=== PATIENT | female | born 1995 | race Caucasian/White ===

== ENCOUNTER 2017-03-26 10:45 | Inpatient (IN) | payer OTHER ==
[~2017-03-26] VITALS: Ht 154.9 cm; Wt 50.3 kg
[2017-03-26 12:00] VITALS: BP 133/80
[2017-03-26 12:25] VITALS: BP 133/80
--- NOTE | 2017-03-26 12:25 | NUR ---
21 year old female admitted to room # 427 for stabilization. 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 Compliant with admission procedure. Patient complaining of restlessness,aching,and headache. See assessment forms for additional information about patient status.
[2017-03-26] MEDS ORDERED: NEURONTIN800 MG PO (12:41)
[2017-03-26] MEDS ORDERED: HYDROXYZINE HCL50 MG PO (12:43)
[2017-03-26 13:13] LABS: BILIRUBIN NEGATIVE (NEGATIVE); BLOOD NEGATIVE (NEGATIVE); CLARITY CLEAR (CLEAR); COLOR YELLOW (YELLOW); GLUCOSE NEGATIVE (NEGATIVE); KETONE NEGATIVE (NEGATIVE); LEUKO ESTERASE NEGATIVE (NEGATIVE); NITRITE NEGATIVE (NEGATIVE); PH 6.5 (5.0-9.0); SPECIFIC GRAVITY <= 1.005 (1.005-1.030); UROBILINOGEN 0.2 E.U./dl (0.2-1.0)
[2017-03-26 13:22] LABS: BASO # 0.1 10*3/uL (0.0-0.1); BASO % 0.7 % (0.0-1.0); EOS # 0.7 10*3/uL (0.0-0.4); HEMATOCRIT 43.6 % (37.0-47.0); HEMOGLOBIN 14.4 g/dl (12.0-16.0); LYMPH # 3.5 10*3/uL (1.3-4.4); MEAN CELL VOLUME 86.2 fl (81.0-99.0); MEAN CORPUSCULAR HGB 28.5 pg (27.0-31.0); MEAN PLATELET VOLUME 8.5 fl (9.6-12.3); MONO # 0.6 10*3/uL (0.1-1.0); MONO % 7.8 % (3.0-9.0); NEUT # 2.8 10*3/uL (2.3-7.9); NEUT % 36.4 % (47.0-73.0); PLATELET COUNT AUTOMATED 336 10*3/uL (130-400); RED BLOOD COUNT 5.06 10*6/uL (4.10-5.10); RED CELL DISTRI WIDTH 13.9 % (0-14.5); WHITE BLOOD COUNT 7.6 10*3/uL (4.8-10.8)
[2017-03-26 13:22] LABS: WBC 0-2 wbc/hpf (0-5)
[2017-03-26 13:35] LABS: URINE AMPHETAMINES < 1000 (1000ng/ml); URINE BARBITURATES < 200 (200ng/ml); URINE BENZODIAZEPINES < 200 (200ng/ml); URINE CANNABINOIDS (THC) < 50 (50ng/ml); URINE COCAINE > 300 (300ng/ml); URINE METHADONE < 300 (300ng/ml); URINE OPIATES < 300 (300ng/ml)
[2017-03-26 13:36] LABS: URINE PHENCYCLIDINE < 25 (25ng/ml)
[2017-03-26 13:37] LABS: ALBUMIN 4.2 gm/dl (3.1-4.5); ALKALINE PHOSPHATASE 79 U/L (45-117); BUN 9 mg/dl (7-24); CHLORIDE 107 mmol/L (98-107); POTASSIUM 4.6 mmol/L (3.5-5.1); SGOT/AST 25 IU/L (3-35); SGPT/ALT 27 U/L (12-78); SODIUM 139 mmol/L (136-145)
[2017-03-26 13:38] LABS: ETHYL ALCOHOL < 3.0 mg/dl (<3)
--- NOTE | 2017-03-26 14:36 | NUR ---
PATIENT C/O FEELING RESTLESS, ACHY AND HEADACHE. MEDICATED WITH MOTRIN, TYLENOL, ROBAXIN AND VISTARIL PER PRN ORDERS. WILL CONTINUE TO MONITOR.
[2017-03-26 16:00] VITALS: BP 131/70
--- NOTE | 2017-03-26 16:13 | NUR ---
D/C PLANNING: PATIENT WANTS TO GO TO [facility] FOR OUTPATIENT. SHE WANTS THE VIVITROL SHOT. SOLE HOFF B.A. [employer]
[2017-03-26 20:00] VITALS: BP 121/64
--- NOTE | 2017-03-26 20:00 | NUR ---
PT LAYING IN BED, RESTLESS, TOSSING AND TURNING. LUNGS CLEAR, NO EDEMA. PT DENIES ABDOMINAL PAIN AND VOMITING BUT DOES REPORT NAUSEA AND CHILLS . PT DENIES TREMORS.
--- NOTE | 2017-03-26 21:17 | NUR ---
PT REQUESTED MEDICATOINS FOR RESTLESSNESS, CHILLS, ANXIETY, AND NAUSEA. ZOFRAN, ROBAXIN, VISTARIL, AND TRAZADONE WERE GIVEN.
--- NOTE | 2017-03-26 22:14 | NUR ---
PRN MEDICATIONS EFFECTIVE. PT SLEEPING. NO TWICTHING OR RESTLESSNESS NOTED.
[2017-03-27] VITALS: BP 121/68
--- NOTE | 2017-03-27 00:08 | NUR ---
PT REQUESTED MEDICATION FOR RESTLESSNESS AND INSOMNIA. REQUIP AND TRAZADONE WERE GIVEN.
--- NOTE | 2017-03-27 01:05 | NUR ---
PT STATES SHE IS STILL RESTLESS AND UNABLE TO SLEEP. CALLED . NEW ORDERS RECEIVED. SEE MAR.
--- NOTE | 2017-03-27 01:20 | NUR ---
24 HR chart check completed.
--- NOTE | 2017-03-27 01:27 | NUR ---
SEROQUEL GIVEN PRN FOR RESTLESSNESS AND INSOMNIA.
--- NOTE | 2017-03-27 02:12 | NUR ---
SEROQUEL EFFECTIVE, PT SLEEPING.
--- NOTE | 2017-03-27 02:21 | NUR ---
PT REQUESTED MEDICTION FOR NAUSEA. ZOFRAN WAS GIVEN.
--- NOTE | 2017-03-27 03:00 | NUR ---
PER PT, ZOFRAN WAS EFFECTIVE. NAUSEA HAS DECREASED.
[2017-03-27 04:00] VITALS: BP 114/63
[2017-03-27 08:00] VITALS: BP 113/67
--- NOTE | 2017-03-27 09:05 | NUR ---
ANXIOUS. COMPLAINING OF BELLY CRAMPS. RESTLESS. MEDICATED WITH BENTYL, VISTARIL, AND ATIVAN PO
[2017-03-27 12:00] VITALS: BP 135/70
--- NOTE | 2017-03-27 13:36 | NUR ---
AWAKE AND ALERT. MUCH LESS RESTLESS.
[2017-03-27 16:00] VITALS: BP 120/76
--- NOTE | 2017-03-27 16:11 | NUR ---
MEDICATED WITH BENTYL ORDERED FOR STOMACH CRAMPS. ALSO MEDICATED WITH ATIVAN PO ORDERED STRAIGHT
[2017-03-27 20:00] VITALS: BP 135/70
--- NOTE | 2017-03-27 21:18 | NUR ---
PATIENT WAS GIVEN SCHED ATIVAN FOR ABD PAIN RATED A 6/10. ROBAXIN AND REQUIP WERE GIVEN PER PATIENT REQUEST RESTLESS LEGS AND LE CRAMPING. WILL CONTINUE TO MONITOR AND REASSESS.
--- NOTE | 2017-03-27 23:45 | NUR ---
SPOKE TO ABOUT ELEVATED TEMP OF 100.5. GOING TO MEDICATE WITH PRN TYLENOL.
[2017-03-28] VITALS: BP 141/82
--- NOTE | 2017-03-28 01:03 | NUR ---
PATIENT GIVEN SCHEDULED ATIVAN. WILL CONTINUE TO MONITOR PATIENT AND EVALUATE EFFECTIVENESS.
--- NOTE | 2017-03-28 06:41 | NUR ---
PATIENT IS LAYING IN BED DRIFTING IN AND OUT OF SLEEP. PATIENT HAS NO COMPLAINTS OF PAIN OR DISCOMFORT AT THIS TIME, BUT STATES SHE HAS BEEN DIAPHORETIC THROUGHOUT THE NIGHT. WILL CONTINUE TO MONITOR PATIENT. SEE SHIFT ASSESSMENT. CALL LIGHT SYSTEM REINFORCED.
[2017-03-28 08:00] VITALS: BP 126/69
--- NOTE | 2017-03-28 08:00 | NUR ---
MEDICATED WITH ATIVAN PO ORDERED PER ROUTINE. DROWSY. DOES AROUSE WHEN NAME IS CALLED. PO 98% ON ROOM AIR. LUNGS CLEAR BILATERALLY. NO EDEMA NOTED. BP 126/69
[2017-03-28 12:00] VITALS: BP 121/76
--- NOTE | 2017-03-28 15:50 | NUR ---
D/C PLAN: PATIENT IS SET UP TO GO TO [facility] FOR THE VIVITROL SHOT. PATIENT UNDERSTANDS AND AGREES TO AGTERCARE PLAN. SOLE HOFF B.A. PATIENT [employer]AL CONCI[employer].
[2017-03-28 16:00] VITALS: BP 122/76
--- NOTE | 2017-03-28 16:23 | NUR ---
NOTIFIED EVGENY HUFFMAN THAT PATIENT IS SIGNING OUT AGAINST MEDICAL ADVICE.
--- NOTE | 2017-03-28 17:39 | NUR ---
SIGNED OUT AMA. ATTEMPTED TO TALK HER INTO STAYING.
== END 2017-03-28 17:39 | disposition left against medical advice (07) | DRG 894 ==
LOC: 4E 10:45
PROVIDERS: Internal Medicine; ADMIT Internal Medicine
DX: F11.23 Opioid dependence with withdrawal (principal); F14.10 Cocaine abuse, uncomplicated; F17.210 Nicotine dependence, cigarettes, uncomplicated; Z53.21 Procedure and treatment not carried out due to patient leaving prior to being seen by health care provider; Z83.3 Family history of diabetes mellitus; Z84.89 Family history of other specified conditions; Z71.6 Tobacco abuse counseling; Z79.899 Other long term (current) drug therapy

== ENCOUNTER 2021-08-30 15:07 | Emergency (ER) | payer OTHER ==
[~2021-08-30] VITALS: Ht 154.9 cm; Wt 52.2 kg
[~2021-08-30 15:07] MED LIST: BUSPAR15 MG PO; HYDROXYZINE HCL50 MG PO; METHADONE HCL40 M1 PO; NEURONTIN800 MG PO; REMERON15 M2 PO; VISTARIL50 MG PO
[2021-08-30 16:59] LABS: BILIRUBIN Negative (Negative); BLOOD Negative (Negative); CLARITY Clear (Clear); COLOR Yellow (Yellow); GLUCOSE Negative (Negative); KETONE Trace (Negative); LEUKO ESTERASE Negative (Negative); NITRITE Negative (Negative)
[2021-08-30 17:09] LABS: URINE AMPHETAMINES < 1000 (1000ng/ml); URINE BARBITURATES < 200 (200ng/ml); URINE BENZODIAZEPINES > 200 (200ng/ml); URINE CANNABINOIDS (THC) < 50 (50ng/ml); URINE COCAINE > 300 (300ng/ml); URINE METHADONE > 300 (300ng/ml); URINE OPIATES > 300 (300ng/ml)
[2021-08-30 17:13] LABS: ALKALINE PHOSPHATASE 64 U/L (45-117); BUN 13 mg/dl (7-24); CHLORIDE 108 mmol/L (98-107); POTASSIUM 4.1 mmol/L (3.5-5.1); SGOT/AST 24 IU/L (3-35); SGPT/ALT 33 U/L (12-78); SODIUM 136 mmol/L (136-145); TOTAL PROTEIN 6.9 gm/dL (6.4-8.2)
[2021-08-30 17:14] LABS: BACTERIA TRACE; RBC 0-2 rbc/hpf (0-2)
[2021-08-30 17:15] LABS: URINE PHENCYCLIDINE < 25 (25ng/ml)
[2021-08-30 17:15] LABS: ETHYL ALCOHOL < 3.0 mg/dl (<3)
== END 2021-08-30 17:13 | disposition left against medical advice (07) ==
LOC: ED 15:07
PROVIDERS: Emergency Medicine
DX: F19.10 Other psychoactive substance abuse, uncomplicated (principal); Z79.899 Other long term (current) drug therapy; Z90.89 Acquired absence of other organs; F17.210 Nicotine dependence, cigarettes, uncomplicated